=== PATIENT | female | born 1980 | race Caucasian/White ===

== ENCOUNTER 2016-12-29 10:35 | Emergency (ER) | payer OTHER ==
--- NOTE | 2016-12-29 11:30 | RAD ---
EXAM: CHEST 2 VIEWS History: Chest pain COMPARISON: None available. TECHNIQUE: PA and lateral chest radiographs FINDINGS: The cardiomediastinal silhouette is within normal limits. The lungs are clear bilaterally. The costophrenic sulci are clear and well demarcated bilaterally. IMPRESSION: No radiographic evidence of an acute cardiopulmonary abnormality.
[2016-12-29 11:32] VITALS: BP 121/76
[2016-12-29 11:49] LABS: BASO # 0.1 x10^3/uL (0.0-0.2); BASO % 1 % (0-3); EOS # 0.7 x10^3/uL (0.0-0.7); EOS % 7 % (0-3); HEMATOCRIT 34.8 % (36.0-47.0); HEMOGLOBIN 11.4 g/dL (12.0-15.5); LYMPH # 2.6 x10^3/uL (1.0-4.8); LYMPH % 25 % (24-48); MEAN CORPUSCULAR HEMOGLOBIN 27 pg (25-35); MEAN CORPUSCULAR HGB CONC 33 g/dL (31-37); MEAN CORPUSCULAR VOLUME 84 fL (79-100); MONO # 0.4 x10^3/uL (0.0-1.1); MONO % 4 % (0-9); NEUT # 6.6 x10^3uL (1.8-7.7); NEUT % 63 % (31-73); PLATELET COUNT 359 x10^3/uL (140-400); RED BLOOD COUNT 4.15 x10^6/uL (3.50-5.40); RED CELL DISTRIBUTION WIDTH 14.5 % (11.5-14.5); WHITE BLOOD COUNT 10.4 x10^3/uL (4.0-11.0)
--- NOTE | 2016-12-29 12:18 | PHYS DOC ---
Past History Past Medical History: No Pertinent History Past Surgical History: Alcohol Use: Occasionally Drug Use: None Adult General Chief Complaint Chief Complaint: CHEST PAIN HPI HPI Patient is a 28 year old female who presents with complaints of chest pain that started this morning, able her up from her sleep, is in the right side, does not radiate. The pain is much improved but to come to the ED arrival. There were no associated symptoms like nausea, vomiting, shortness of breath. Patient denies any smoking history, recent travel, trauma, control medications. Patient denies any leg pain or leg swelling. Patient has some concerns because some family history of diabetes and also cardiac problems at the age of 60 in parents. Review of Systems Review of Systems Constitutional: Denies fever or chills [] Eyes: Denies change in visual acuity, redness, or eye pain [] HENT: Denies nasal congestion or sore throat, no neck pain Respiratory: Denies cough or shortness of breath [] Cardiovascular: Right-sided chest discomfort GI: Denies abdominal pain, nausea, vomiting, : Denies dysuria or hematuria [] Musculoskeletal: Denies back pain or joint pain [] Integument: Denies rash or skin lesions [] Neurologic: Denies headache, focal weakness or sensory changes [] Physical Exam Physical Exam Constitutional: Well developed, well nourished, no acute distress, non-toxic appearance. [] HENT: Normocephalic, atraumatic, no JVD Eyes: EOMI, conjunctiva normal, no discharge. [] Neck: Normal range of motion, no tenderness, supple, no stridor. No JVD, no LAD , no meningeal signs Cardiovascular:Heart rate regular rhythm, no murmur, equal pulses, normal perfusion Lungs & Thorax: Bilateral breath sounds clear to auscultation, no tachypnea Abdomen: Bowel sounds normal, soft, no tenderness, no masses, no pulsatile masses. [] Skin: Warm, dry, no erythema, no rash. [] Back: No tenderness, normal range of motion Extremities: No tenderness, no cyanosis, no clubbing, ROM intact, no edema. No DVT Neurologic: Alert and oriented X 3, normal motor function, no focal deficits noted. [] Psychologic: Affect normal, judgement normal, mood normal. [] Current Patient Data Vital Signs Vital Signs Date Time Temp Pulse Resp B/P (MAP) Pulse Ox O2 Delivery O2 Flow Rate FiO2 12/29/16 11:32 70 16 121/76 (91) 97 Room Air 12/29/16 10:51 97.7 Lab Results Laboratory Tests Test 12/29/16 11:22 White Blood Count 10.4 x10^3/uL (4.0-11.0) Red Blood Count 4.15 x10^6/uL (3.50-5.40) Hemoglobin 11.4 g/dL (12.0-15.5) L Hematocrit 34.8 % (36.0-47.0) L Mean Corpuscular Volume 84 fL (79-100) Mean Corpuscular Hemoglobin 27 pg (25-35) Mean Corpuscular Hemoglobin Concent 33 g/dL (31-37) Red Cell Distribution Width 14.5 % (11.5-14.5) Platelet Count 359 x10^3/uL (140-400) Neutrophils (%) (Auto) 63 % (31-73) Lymphocytes (%) (Auto) 25 % (24-48) Monocytes (%) (Auto) 4 % (0-9) Eosinophils (%) (Auto) 7 % (0-3) H Basophils (%) (Auto) 1 % (0-3) Neutrophils # (Auto) 6.6 x10^3uL (1.8-7.7) Lymphocytes # (Auto) 2.6 x10^3/uL (1.0-4.8) Monocytes # (Auto) 0.4 x10^3/uL (0.0-1.1) Eosinophils # (Auto) 0.7 x10^3/uL (0.0-0.7) Basophils # (Auto) 0.1 x10^3/uL (0.0-0.2) D-Dimer (Corin) 0.67 mg/L (0.00-0.50) H EKG EKG 1059 SR, 67, no stemi[] 1423 SR, 64, no stemi Radiology/Procedures Radiology/Procedures FINDINGS: The cardiomediastinal silhouette is within normal limits. The lungs are clear bilaterally. The costophrenic sulci are clear and well demarcated bilaterally. IMPRESSION: No radiographic evidence of an acute cardiopulmonary abnormality.[] Course & Med Decision Making Course & Med Decision Making Pertinent Labs and Imaging studies reviewed. (See chart for details) 1252 pt ambulated in the ED, 94% RA, pt did not feel any distress in fact she said she felt better. Was not tachypneic. I have discussed with pt the slight elevation in d-dimer but at the level it is and with the pt VS being what they are I do not feel that a CT is appropriate and the radiation exposure to the patient is not justified. Shared decision making took place and pt is agreeable as she feels improved. 1533 pt remains in nad. Istat troponin negative. [] Dragon Disclaimer Dragon Disclaimer This chart was dictated in whole or in part using Voice Recognition software in a busy, high-work load, and often noisy Emergency Department environment. It may contain unintended and wholly unrecognized errors or omissions. Departure Departure: Impression: Primary Impression: Nonspecific chest pain Disposition: HOME, SELF-CARE Condition: STABLE Referrals: PRACHI VARGHESE (PCP) please follow up for recheck and re-evaluation in 1-2 days and discuss further outpatient work up as needed. Patient Instructions: Chest Pain (Nonspecific) Alma HOUSE MD Dec 29, 2016 12:18
[2016-12-29 12:25] LABS: CALCIUM 9.5 mg/dL (8.5-10.1); GFR 62.1; POTASSIUM 3.7 mmol/L (3.5-5.1)
--- NOTE | 2016-12-30 06:43 | EKG ---
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
--- NOTE | 2016-12-30 06:44 | EKG ---
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
== END 2016-12-29 15:30 | disposition home or self-care (01) ==
LOC: ER 10:42
DX: R07.89 Other chest pain (principal)
CPT/HCPCS: 36415; 71020; 80048; 84484; 85025; 85379; 93005; 99285-25